=== PATIENT | female | born 1985 | race Two or more races ===

== ENCOUNTER 2022-03-07 15:08 | Emergency (ER) | payer SELFPAY ==
[~2022-03-07] VITALS: Ht 170.2 cm; Wt 66.0 kg
[2022-03-07] MEDS ORDERED: NALOXONE HCL 0.4 MG/ML 1ML VIAL IV ONE (15:30)
[2022-03-07] MEDS ORDERED: BLOOD SUGAR DIAGNOSTIC STRIP TEST ONE (15:30)
[2022-03-07] MEDS ORDERED: NALOXONE HCL 1 MG/ML 2ML VIAL IV ONE (16:15)
[2022-03-07 19:11] VITALS: BP 120/75
== END 2022-03-07 20:02 | disposition home or self-care (01) ==
LOC: EDBD 15:08 → ER 15:08
DX: T40.2X1A Poisoning by other opioids, accidental (unintentional), initial encounter (principal); X58.XXXA Exposure to other specified factors, initial encounter; F17.290 Nicotine dependence, other tobacco product, uncomplicated
CPT/HCPCS: 70450; 82962; 96374; 96376; 99284; J2310

== ENCOUNTER 2023-07-14 12:10 | Emergency (ER) | payer OTHER ==
[~2023-07-14] VITALS: Ht 162.6 cm; Wt 60.0 kg
[2023-07-14 12:11] VITALS: O2SAT 99
[2023-07-14] MEDS: LORAZEPAM 2MG/ML CPJ IM NR ×2 (18:15→18:31)
[2023-07-14] MEDS ORDERED: HALOPERIDOL LACTATE 5MG/ML VIAL IM NR (18:15)
[2023-07-14 21:04] VITALS: BP 115/61; PULSE 75; RESP 15; TEMP 98.3
== END 2023-07-14 22:40 | disposition home or self-care (01) ==
LOC: ER 12:34
DX: F19.10 Other psychoactive substance abuse, uncomplicated (principal); R51.9 Headache, unspecified
CPT/HCPCS: 99291; 70450; 72125; 96372; J1630; J2060